=== PATIENT | male | born 1995 | race American Indian/Alaskan Native ===

== ENCOUNTER 2017-06-18 16:18 | Emergency (ER) | payer OTHER ==
[2017-06-18 16:33] VITALS: BP 119/85
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
--- NOTE | 2017-06-19 07:43 | XRay Report ---
RIGHT ELBOW, 3 views: History: Right elbow pain. The bony architecture is intact without evidence of fracture or dislocation. No significant soft tissue abnormality is seen. IMPRESSION: Normal right elbow.
== END 2017-06-19 01:00 | disposition left against medical advice (07) ==
LOC: ED 16:18
DX: M25.521 Pain in right elbow (principal); Y04.8XXA Assault by other bodily force, initial encounter; Y93.89 Activity, other specified; Y99.9 Unspecified external cause status; Y92.89 Other specified places as the place of occurrence of the external cause; Z53.21 Procedure and treatment not carried out due to patient leaving prior to being seen by health care provider